=== PATIENT | male | born 1965 | race Caucasian/White ===

== ENCOUNTER 2017-01-27 12:58 | Emergency (ER) | payer OTHER, BC ==
[~2017-01-27] VITALS: Ht 177.8 cm; Wt 96.2 kg
[2017-01-27 15:45] VITALS: BP 157/107
== END 2017-01-27 15:50 | disposition home or self-care (01) ==
LOC: EME 12:58
PROC: 0HQ0XZZ Repair Scalp Skin, External Approach (ICD-10-PCS; principal; 2017-01-27)
DX: S01.01XA Laceration without foreign body of scalp, initial encounter (principal); S09.8XXA Other specified injuries of head, initial encounter; V59.40XA Driver of pick-up truck or van injured in collision with unspecified motor vehicles in traffic accident, initial encounter; Y92.410 Unspecified street and highway as the place of occurrence of the external cause
CPT/HCPCS: 70450; 72125; 99281; 99285